=== PATIENT | female | born 1980 | race Caucasian/White ===

== ENCOUNTER 2024-03-18 05:30 | Day surgery (SDC) | payer OTHER ==
[2024-03-17 14:31] VITALS: BP 95/64
[~2024-03-18] VITALS: Ht 162.6 cm; Wt 72.6 kg
[~2024-03-18 05:30] MED LIST: PLAQUENIL
[2024-03-18] MEDS ORDERED: CEFOXITIN SODIUM 2,000 MG VIAL IV ONE (08:23)
[2024-03-18] MEDS ORDERED: POVIDONE-IODINE 118 ML BOTT TOP ONE (09:58)
[2024-03-18] MEDS ORDERED: SUGAMMADEX SODIUM 200 MG/2 ML VIAL IV ONE (10:57)
[2024-03-18] MEDS ORDERED: MONODOX100 MG PO (11:14)
[2024-03-18] MEDS ORDERED: NAPR500T14 PO (11:14)
[2024-03-18] MEDS ORDERED: MORPHINE SULFATE 4 MG/ML VIAL IV PRN (11:15)
[2024-03-18] MEDS ORDERED: PROMETHAZINE HCL 50 MG/ML AMPUL IM ONE (11:15)
[2024-03-18] MEDS ORDERED: Tylenol #3 PO (11:19)
[2024-03-18] MEDS ORDERED: MORPHINE SULFATE 4 MG/ML VIAL IV ONE ×3 (11:40→12:10)
== END 2024-03-18 14:00 | disposition home or self-care (01) ==
LOC: CIR.AMB 05:30
PROVIDERS: ATTEND Obstetrics & Gynecology
DX: O00.102 Left tubal pregnancy without intrauterine pregnancy (principal); N80.202 Endometriosis of left fallopian tube, unspecified depth; N83.8 Other noninflammatory disorders of ovary, fallopian tube and broad ligament; M19.90 Unspecified osteoarthritis, unspecified site; R51.9 Headache, unspecified